=== PATIENT | male | born 1995 ===

== ENCOUNTER 2023-06-26 10:08 | Outpatient (AMB) | payer OTHER, SELFPAY ==
[2023-06-26 10:59] VITALS: BP 98/68; PULSE 76; RESP 13; O2SAT 97; BMI 16.9
--- NOTE | 2023-06-26 10:59 | MHC.OFFWIV ---
Intake Vital Signs 06/26/23 10:59 Height 5 ft 7 in Weight 108 lb BMI 16.9 BP 98/68 Blood Pressure Location Lt brachial Position Sitting Respiration 13 Pulse 76 Pulse Source Pulse Oximeter Pulse Oximetry (%) 97 Oxygen Delivery Method Room Air Intake Visit Reasons: congestion Intake Note: Patient is here for congestion, cough and cold symptoms x8 days. Patient denies fever and his at home covid test was negative yesterday. Patient would like to know if he might have an ear infection. Patient Tobacco Use Status: Former Tobacco user Compensation Analyst Required: No Accompanied by: Self / Same As Patient Allergies No Known Allergies Allergy (Verified 06/26/23 11:24) Medication List - Last Reconciled 06/26/23 by YOUSIF Mims No Known Home Meds Do you need a note to return to daycare/school/sports/work: No HPI HPI Comments History of Present Illness Details sick for 1 week started w/ congestion in chest and head, cough, runny nose, PND using dayquil, nyquil w/o relief home covid test negative yesterday UTD on vaccines No known sick contacts, recent travel [facility] Social History Patient Tobacco Use Status: Former Tobacco user Review of Systems Const All systems reviewed & are unremarkable except as noted in HPI and below Physical Exam Vital Signs: Last Vital Signs Pulse 76 06/26/23 10:59 Resp 13 06/26/23 10:59 BP 98/68 06/26/23 10:59 Pulse Ox 97 06/26/23 10:59 Oxygen Delivery Method Room Air 06/26/23 10:59 BMI result Body Mass Index 16.9 Const Other: awake alert NAD sclera & conjunctiva clear bilat TM intact clear bilat nares with mucoid discharge, turbinates pale and edematous, max sinus tenderness bilat pharynx pnd LS CTAB RRR Assessment & Plan Assessment & Plan (1) Sinusitis: Code(s): J32.9 - Chronic sinusitis, unspecified Qualifiers: Chronicity: acute Recurrence: non-recurrent Sinusitis location: maxillary Qualified Code(s): J01.00 - Acute maxillary sinusitis, unspecified Plan: . Medications: New amoxicillin-pot clavulanate 875-125 mg 1 tab PO BID 14 tabs 0RF 7 days fluticasone propionate 50 mcg/actuation administer into each nostril 1 spray intranasal BID 16 grams 0RF Coding Level of Care Code Est Pt Level 3 (60015) Diagnoses Acute non-recurrent maxillary sinusitis J01.00 Chronicity: acute Recurrence: non-recurrent Sinusitis location: maxillary
== END 2023-06-26 11:29 | disposition home or self-care (01) ==
PROVIDERS: Visit Provider Nurse Practitioner Family
DX: J01.00 Acute maxillary sinusitis, unspecified (principal)
CPT/HCPCS: 99213